=== PATIENT | female | born 1985 | race Caucasian/White ===

== ENCOUNTER 2018-10-01 17:41 | Emergency (ER) ==
[2018-10-01 17:52] VITALS: BP 128/86; TEMP 97.6; BMI 21.9
--- NOTE | 2018-10-01 18:09 | ED.PDOC ---
General ED Provider: Dr. ABRAHAM WILLIAM Chief Complaint: Medication Refill Stated Complaint: At [facility] - out of medicaitons (see nurses notes); appointment with provider on Thursday and will expects to refil them at that time. No other medical issues - no other health care complaints. Time Seen by Physician: 18:03 Mode of Arrival: Walk-In Information Source: Patient Primary Care Provider: TIM LIN-[facility] Nursing and Triage Documentation Reviewed and Agree: Yes Does patient meet sepsis criteria?: No System Inflammatory Response Syndrome: Not Applicable Sepsis Protocol: For patient's 13 years and over: Temp is 96.8 and below OR 101 and greater Pulse >90 BPM Resp >20/minute Acutely Altered Mental Status Are patient's symptoms suggestive of a new infection, such as: -Pneumonia -Skin, Soft Tissue -Endocarditis -UTI -Bone, Joint Infection -Implantable Device -Acute Abdominal Infection -Wound Infection -Meningitis -Blood Stream Catheter Infection -Unknown Review of Systems - Review Of Systems Constitutional: Reports: No symptoms Respiratory: Reports: No symptoms Cardiac: Reports: No symptoms Musculoskeletal: Reports: No symptoms All Other Systems: Reviewed and Negative Past Medical History - Past Medical History Previously Healthy: Yes Endocrine: Reports: None Cardiovascular: Reports: None Respiratory: Reports: None Hematological: Reports: None Gastrointestinal: Reports: None Genitourinary: Reports: None Neuro/Psych: Reports: Anxiety, Depression Musculoskeletal: Reports: None Cancer: Reports: None Last Menstrual Period: now - Surgical History General Surgical History: Reports: Unknown - Family History Family History: Reports: Unknown - Social History Smoking Status: Never smoker Hx Substance Use: No Alcohol Screening: None Lives: Alone ([facility]) Physical Exam - Physical Exam Appearance: Well-appearing Ill-appearing: None Pain Distress: None Eyes: SCHUYLER, EOMI, Right pupil size (5 mm), Left pupil size (5 mm) Respiratory: Airway patent, Breath sounds clear, Breath sounds equal, Respirations nonlabored Cardiovascular: RRR, Pulses normal Musculoskeletal: Normal strength, ROM intact Skin: Warm, Dry, Normal color Neurological: Sensation intact, Motor intact, Alert, Oriented Psychiatric: Affect appropriate, Mood appropriate Critical Care Note - Critical Care Note Total Time (mins): 10 Course - Course Vital Signs: Temp Pulse Resp BP Pulse Ox 10/01/18 17:41 97.6 F 84 20 128/86 98 Departure - Departure Time of Disposition: 18:13 Disposition: HOME SELF-CARE Discharge Problem: Medication refill Instructions: Medicine Refill (ED) Condition: Good Pt referred to PMD for follow-up: Yes (Keep appointment with provider) IPMP verified?: No (N/A) Additional Instructions: Keep appointment with provider as scheduled on the . Allergies/Adverse Reactions: Allergies ketorolac [From Toradol] Adverse Reaction (Verified 10/01/18 17:53) latex Adverse Reaction (Verified 10/01/18 17:53) tramadol Adverse Reaction (Verified 10/01/18 17:53) Home Medications: Ambulatory Orders Alprazolam [Xanax] 1 mg PO TID PRN 09/07/18 Citalopram Hydrobromide [Celexa] 40 mg PO DAILY 09/07/18 Olanzapine [Zyprexa] 10 mg PO BEDTIME 09/07/18 Disposition Discussed With: Patient
== END 2018-10-01 18:47 | disposition home or self-care (01) ==
LOC: ED 17:41
DX: Z76.0 Encounter for issue of repeat prescription (principal)
CPT/HCPCS: 99282

== ENCOUNTER 2018-10-02 20:34 | Emergency (ER) ==
[2018-10-02 20:47] VITALS: BP 133/87; TEMP 97.6; BMI 22.2
[2018-10-02] MEDS ORDERED: ATARAX PO STA (21:06)
[2018-10-02] MEDS ORDERED: TYLENOL PO STA (21:06)
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
== END 2018-10-02 21:18 | disposition left against medical advice (07) ==
LOC: ED 20:34
DX: R51 Headache (principal); Z76.0 Encounter for issue of repeat prescription
CPT/HCPCS: 80306; 99284

== ENCOUNTER 2018-10-02 21:57 | Outpatient (CLI) ==
[2018-10-02 20:47] VITALS: BMI 22.2
== END 2018-10-02 22:04 | disposition short-term general hospital (02) ==
LOC: AMBL 21:57
PROVIDERS: ATTEND Internal Medicine Geriatric Medicine
DX: R11.10 Vomiting, unspecified (principal); R40.4 Transient alteration of awareness; R56.9 Unspecified convulsions; R51 Headache; F13.90 Sedative, hypnotic, or anxiolytic use, unspecified, uncomplicated; R06.9 Unspecified abnormalities of breathing; W19.XXXA Unspecified fall, initial encounter; S02.2XXA Fracture of nasal bones, initial encounter for closed fracture; Y04.2XXA Assault by strike against or bumped into by another person, initial encounter